=== PATIENT | male | born 1940 | race Caucasian/White ===

== ENCOUNTER 2016-11-16 11:14 | Day surgery (SDC) | payer MEDICARE ==
[~2016-11-16] VITALS: Ht 170.2 cm; Wt 81.7 kg
[2016-11-16 11:41] VITALS: BP 188/103; PULSE 48; RESP 16; O2SAT 96
[2016-11-16] MEDS ORDERED: OMEP20CA11 PO (11:44)
[2016-11-16] MEDS ORDERED: AMLO5TAB2 PO (11:44)
[2016-11-16] MEDS ORDERED: ATEN50TA PO (11:44)
[2016-11-16] MEDS ORDERED: MULT1CAP33 PO (11:44)
[2016-11-16] MEDS ORDERED: LACT1TAB11 PO (11:44)
[2016-11-16] MEDS ORDERED: Sodium Chloride LOK Flush 10 mL Syringe IV PRN (12:25)
[2016-11-16] MEDS: fentaNYL-PF 50 mCg/mL 2 mL Inj IVPUSH PRN ×2 (13:09→14:13)
[2016-11-16] MEDS: 0.9% Sodium Chloride 1,000 ML IV PRN ×2 (13:10→14:19)
[2016-11-16 14:27] VITALS: BP 106/64; PULSE 54; RESP 16; O2SAT 94
[2016-11-16 14:37] VITALS: BP 112/68; PULSE 54; RESP 16; O2SAT 96
[2016-11-16 14:47] VITALS: BP 121/77; PULSE 52; RESP 16; O2SAT 96
--- NOTE | 2016-11-16 15:36 | ENDO ---
[address] [address] ENDOSCOPY PROCEDURE PATIENT: ARAMIS PHILLIPS : 1940 MR#: [id number] ADMIT: 11/16/2016 JOB ID: [id number] DATE: 11/16/2016 PRIMARY PROVIDER: Juan Silva M.D. PROCEDURE: Esophagogastroduodenoscopy with biopsy. INDICATION: A 75-year-old male with about two weeks of symptoms of severe fairly unrelenting chest tightness and in essence has precluded him from normal diet, worse with food. No real relief from PPI or GI cocktail. EGD was requested urgently today. EQUIPMENT: GIF H 180. SEDATION: 1. 5 mg Versed. 2. 100 mcg fentanyl. COMPLICATIONS: None identified. PROCEDURAL INFORMATION: After the risks and benefits were extensively explained, written and verbal informed consent was obtained. The patient was brought into the endoscopy suite and placed into the left lateral decubitus position. Sedation was achieved as above. The scope was introduced into the mouth through the bite block and advanced to the second portion of the duodenum. The scope was slowly withdrawn to carefully examine the mucosa for any defects or lesions. Retroflexed views were accomplished in the stomach. The stomach was decompressed. The scope removed from the patient who tolerated the procedure well. FINDINGS: 1. Duodenum: No pathology identified from the bulb through to the second portion. The major papilla was identified and with application of suction in the duodenum I could see a dark- colored bile flow through the biliary os. 2. Stomach: No significant pathology throughout. No ulcers, mass lesions nor outlet obstruction. Retroflexed views of the LES were unremarkable. Minimal gastropathy and, therefore, biopsy was taken for exclusion of Helicobacter or other pathology. 3. Esophagus: The squamocolumnar junction correlated with the top of the gastric folds. The GE junction was at 39 cm from the incisors. No acute erosive changes. No strictures. No mass lesions. Interestingly when we arrived down in the distal esophagus, the lower esophageal sphincter mechanism appeared to be rather tense and it took a little while for it to relax and allow us to enter the stomach. That said, no esophageal pathology appreciated throughout. ENDOSCOPIC DIAGNOSIS: 1. Mild gastropathy. 2. Otherwise visually unremarkable esophagogastroduodenoscopy. RECOMMENDATIONS: 1. Await histopathology to exclude H pylori. 2. I would be in favor of pursuing further biliary workup once again. I know that back about four years ago. He had a negative HIDA scan. I would recommend at least pursuing ultrasound plus or minus a HIDA scan and correlating all of his symptoms and updated imaging with liver test results from the ED and today. Depending on the findings on that score, further evaluation can be pursued with MRCP. If it does look like it is solely the gallbladder to blame here, then surgical consultation would be appropriate. 3. If all of the above is completely unrevealing and the patient persist with symptoms of chest tightness, then esophageal manometry would be appropriate.
[2016-11-16 15:51] LABS: Phosphorus 4.1 mg/dL (2.5-4.9)
--- NOTE | 2016-11-18 10:34 | PATH ---
SURGICAL PATHOLOGY Attending Physician:Alberto Allen CASE STATUS: Signed Out PATIENT NAME: ARAIMS PHILLIPS PID: [id number] : 1940 DATE COLLECTED:11/16/2016 00:00 SPECIMEN: Gastric, Biopsy CLINICAL HISTORY: 1. GASTRIC BIOPSY FINAL DIAGNOSIS: 1.GASTRIC BIOPSY: GASTRIC FUNDIC MUCOSA WITH HYPEREMIA BUT NEGATIVE FOR SIGNIFICANT INFLAMMATION.. Negative for evidence of Helicobacter. Negative for intestinal metaplasia. Negative for dysplasia and malignancy. ICD10 R10.9 GROSS DESCRIPTION: The specimen is received in one formalin filled container labeled with the patient's name, sublabeled "gastric" and consists of a 0.4 x 0.3 x 0.2 CM portion of tissue which is entirely submitted in one cassette. 11/17/2016 [facility] MICRO DESCRIPTION: See diagnosis. ICD-9 CODES: CPT CODES: 1: 88914 Electronically Signed Out Bennie Tovar MD [facility] [address] [facility], [place] [address] Technical component performed at [facility], [facility] [address], [place], [address]
== END 2016-11-16 23:59 | disposition home or self-care (01) ==
LOC: END 11:14
PROVIDERS: ATTEND Internal Medicine Gastroenterology
DX: K31.9 Disease of stomach and duodenum, unspecified (principal); R07.89 Other chest pain; K21.9 Gastro-esophageal reflux disease without esophagitis; I10 Essential (primary) hypertension; M54.9 Dorsalgia, unspecified; F41.8 Other specified anxiety disorders; Z79.82 Long term (current) use of aspirin
CPT/HCPCS: 36415; 43239; 80069; 83690; 88305; G0500; J7030

== ENCOUNTER 2017-02-15 10:33 | Emergency (ER) | payer MEDICARE ==
[~2017-02-15] VITALS: Ht 170.2 cm; Wt 79.5 kg
[~2017-02-15 10:33] MED LIST: AMLO5TAB2 PO; ATEN50TA PO; LACT1TAB11 PO; MULT1CAP33 PO; OMEP20CA11 PO
[2017-02-15 10:37] VITALS: BP 156/82; PULSE 52; RESP 16; O2SAT 100
--- NOTE | 2017-02-15 10:43 | ED.REPORT ---
HPI-General Illness Date of Service Feb 15, 2017 ED Provider: Tha Vaca MD This is a 76-year-old gentleman with history of GERD and hypertension who presents to the ED after talking with Dr. Cantu on the phone for test chest tightness and abdominal tightness. This has been an ongoing issue for him since October 2016, however this episode started about 10 days ago. Every morning, he feels this chest tightness and upper abdominal tightness that does not radiate and lasts until about mid afternoon. His symptoms are better after long hot showers and oxycodone. Eating makes his symptoms worse. He does not have any associated shortness of breath, but has nausea with some vomiting as well as poor appetite with stated weight loss of 10 pounds. He denies hematemesis. He does have constipation with his last bowel movement this morning and he is still passing gas. He has no urinary discomfort. He mentions that he had a similar episode in October 2016 where they did a cardiac workup at [facility] which was per patient report unremarkable. He also had EGD done by Dr. Cantu in October 2016 showing mild gastropathy and H. pylori negative per biopsy. At that time they doubled up on his omeprazole and he has been symptom-free since up until 10 days ago. He was at [facility] on and had a blood pressure of 218/102 and was treated for his hypertension. He was found to have negative troponins 2, LFT and alk phos within normal limits, and a normal lipase. He does note that he has been using marijuana oil 2 times a week to help with his back pain, but has not used it since his symptoms have started. Nursing Notes Stated Complaint: UNABLE TO EAT Chief Complaint: General Complaint Nursing Notes Reviewed: Yes Allergies: Coded Allergies: No Known Allergies (Verified Allergy, 11/02/12) Scheduled Amlodipine (Amlodipine) 5 Mg Tablet 5 MG PO DAILY Atenolol (Atenolol) 50 Mg Tablet 50 MG PO DAILY Lactobacillus Combo No.6 (Probiotic Complex) 1 Each Tablet 1 EACH PO DAILY Multivitamin (Multivitamins) 1 Each Capsule 1 EACH PO DAILY Omeprazole (Omeprazole) 20 Mg Capsule. 20 MG PO DAILY Ranitidine (Ranitidine) 150 Mg Capsule 150 MG PO BID General Time Seen by MD: 10:41 Chief Complaint Abdominal pain Hx Obtained From: Patient Past Medical History Patient History: FH: ALS (amyotrophic lateral sclerosis) FATHER FHx: brain cancer MOTHER Past Medical History GERD and hypertension Past Surgical History Bilateral hip replacement Knee replacement Smoking History Never Smoker Social History Alcohol Use: 1-3 per day (Wine) Drug Use: THC (CBD oil 2x per week) Review of Systems Full Review of Systems Constitutional: Reports: Recent wt loss, Weakness - generalized, Denies: Chills, Fever Respiratory: Denies: Non-productive cough, Pleuritic pain, Shortness of breath Cardiovascular: Reports: Chest pain (tightness) GI: Reports: Abdominal pain, Anorexia, Constipation, Nausea, Vomiting, Denies: Bloody/tarry stool, Diarrhea, Hematemesis, Melena Musculoskeletal: Reports: Back pain Endocrine: Reports: Weight loss Skin: Denies Itching Neurologic: Reports: Weakness, Denies: Headache, Vision change Complete sys rev & neg: except as marked. Physical Exam Vital Signs Vital Signs Date Time Temp Pulse Resp B/P Pulse Ox O2 Delivery O2 Flow Rate FiO2 02/15/17 13:54 36.7 53 20 129/77 100 Room Air 02/15/17 12:32 53 20 118/74 100 Room Air 02/15/17 10:37 36.2 52 16 156/82 100 Initial VS: Reviewed General/Constitutional: Well-developed, Well-nourished Head / Eyes: Atraumatic, Normocephalic, PERRL ENT: No scleral icterus Neck: Supple, Full range of motion Respiratory: Breath sounds normal, Clear to auscultation, No respiratory distress Cardiovascular: Regular rate & rhythm, Heart sounds normal Abdomen / GI: Soft, No guarding, No rebound, No distention Back: No CVA tenderness Lymphatic: No lymphadenopathy Extremities: Vascular intact Neurologic: Alert, Oriented Psychiatric: Mood/affect normal, Behavior normal, Normal thought content Mouth: Positive: Mucous membranes dry Abdomen: McBurney's non-tender (Negative Mcandrews sign), BS normoactive Tenderness/Guarding/Rebound: Positive: Tender LUQ... (Mild) Interpretation & Diagnostics Lab Results Interpretation Result Diagram: 02/15/17 1137 02/15/17 1137 Test 02/15/17 11:37 White Blood Count 8.6th/mm3 (3.8-10.1) Red Blood Count 4.56mil/mm3 (4.40-5.80) Hemoglobin 14.2g/dL (13.8-17.2) Hematocrit 40.1% (41.0-50.0) Mean Corpuscular Volume 87.9fL (81-100) Mean Corpuscular Hemoglobin 31.1pg (27.0-35.0) Mean Corpuscular Hemoglobin Concent 35.4% (32.0-37.0) Red Cell Distribution Width 11.9% (12.3-15.4) Platelet Count 370bil/L (150-400) Neutrophils (%) (Auto) 72.5% (40-74) Lymphocytes (%) (Auto) 17.4% (14-46) Monocytes (%) (Auto) 9.0% (4-12) Eosinophils (%) (Auto) 0.8% (0-5) Basophils (%) (Auto) 0.2% (0-3) Sodium Level 133mEq/L (134-144) Potassium Level 4.3mEq/L (3.5-5.2) Chloride Level 96mEq/L (97-108) Carbon Dioxide Level 21mmol/L (18-29) Blood Urea Nitrogen 17mg/dL (8-27) Creatinine 1.02mg/dL (0.76-1.27) Estimat Glomerular Filtration Rate 75mL/min (>59) Glucose Level 127mg/dL (60-99) Calcium Level 9.3mg/dL (8.5-10.1) Magnesium Level 2.3mg/dL (1.6-2.6) Total Bilirubin 0.8mg/dL (0.0-1.2) Aspartate Amino Transf (AST/SGOT) 15U/L (0-50) Alanine Aminotransferase (ALT/SGPT) 15U/L (0-44) Alkaline Phosphatase 69U/L (25-160) Troponin T 0.010ug/L (0.0-0.011) Total Protein 7.0g/dL (6.4-8.4) Albumin 4.3g/dL (3.4-5.0) Lipase 40U/L (13-60) Hold Campbell Top Tube Received (Received) Re-Eval/Medical Decision Med Decision/Clinical Course This is a 76-year-old male with history of GERD and hypertension who presents to the ED with generalized abdominal tightness and chest tightness off and on for the last 10 days. His symptoms occur in the morning and lasts until the afternoon. He finds relief with omeprazole and oxycodone as well as long hot showers. On examination he did elicit some mild left upper quadrant tenderness otherwise exam was unremarkable including negative Romero's and McBurney's. His CBC and CMP were remarkable including LFTs. Lipase within normal limits and troponin negative. EKG was also unremarkable. His symptoms have improved with the GI cocktail and he is no longer in discomfort. These issues could be stress related as his is supposed to have a very major surgery soon which requires hospitalization for 7 days and he has been feeling stressed about that. There does not seem to be an urgent cause for his symptoms. Discharge & Departure Primary Impression: Gastritis Disposition: Home Discharge Condition All VS Reviewed: Yes Condition: Stable Patient Instructions: Gastritis (ED) Additional Instructions: I have added Ranitidine to your prescriptions. Take this along with your omeprazole as prescribed. Follow up with Dr. Cantu in one week. Referrals: Bennie Cantu MD (PCP) 1 Week Juan Silva MD EDSupervising Provider for APC: Tha Vaca MD Attending Statement I discussed patient with resident . I evaluated the patient independently and agree with plan as above. 76-year-old male long history of gastritis presenting with epigastric pain for 10 days. His pain resolved with GI cocktail. His labs are unremarkable. His pain is resolved. Likely gastritis. He is tolerating by mouth. He will follow-up with his primary doctor and his GI doctor. He will continue his daily PPI twice a day and will add ranitidine. Return precautions given. copies to: Juan Silva MD; Bennie Cantu MD, Ben M MD Feb 15, 2017 10:43 Ephraim Loco DO Feb 15, 2017 11:53
[2017-02-15] MEDS ORDERED: LidocaineVisc 2%:Antacid 1:1 10 mL Syringe PO ONE (10:45)
[2017-02-15] MEDS ORDERED: Ondansetron 2 mg/mL 2 mL Inj IVPUSH PRN (10:45)
--- NOTE | 2017-02-15 11:17 | DRSVH ---
PROCEDURE: X-RAY CHEST ONE VIEW, PORTABLE ([id number]) INDICATIONS: chest pain TECHNIQUE: One view of the chest was acquired. COMPARISON: [facility], , CHEST 1 VIEW, 02/06/2017, 10:06. FINDINGS: Surgical changes and devices: None. Lungs and pleura: No pleural effusions or pneumothorax. Lungs are clear. Mediastinum: Mediastinal contours appear normal. Heart size is normal. Bones and chest wall: There are old right seventh and eighth rib fractures, unchanged. No suspicious bony lesions. Overlying soft tissues appear unremarkable. IMPRESSION: No acute cardiopulmonary disease. Old right seventh and eighth rib fractures again noted. Dictated by: Lakisha Cruz M.D. on 02/15/2017 at 11:14 Approved by: Lakisha Cruz M.D. on 02/15/2017 at 11:15
[2017-02-15 11:55] LABS: BASOPHILS % (AUTO) 0.2 % (0-3); EOSINOPHILS % (AUTO) 0.8 % (0-5); Mean Corpuscular Hemoglobin 31.1 pg (27.0-35.0); Mean Corpuscular Volume 87.9 fL (81-100); NEUTROPHILS % (AUTO) 72.5 % (40-74); Platelet Count 370 bil/L (150-400)
[2017-02-15 12:15] LABS: TROPONIN T 0.01 ug/L (0.0-0.011)
[2017-02-15 12:27] LABS: Magnesium 2.3 mg/dL (1.6-2.6)
[2017-02-15 12:32] VITALS: BP 118/74; PULSE 53; RESP 20; O2SAT 100
[2017-02-15] MEDS ORDERED: RANI150C4 PO (12:58)
[2017-02-15 13:54] VITALS: BP 129/77; PULSE 53; RESP 20; O2SAT 100
== END 2017-02-15 13:55 | disposition home or self-care (01) ==
LOC: SED 10:33
DX: K29.70 Gastritis, unspecified, without bleeding (principal); K59.00 Constipation, unspecified; I10 Essential (primary) hypertension; K21.9 Gastro-esophageal reflux disease without esophagitis
CPT/HCPCS: 36415; 71010; 80053; 82948; 83690; 83735; 84484; 85025; 93005; 96374; 99285; J2405